=== PATIENT | male | born 1985 | race Caucasian/White ===

== ENCOUNTER 2019-06-11 21:46 | Emergency (ER) | payer BC ==
[~2019-06-11] VITALS: Ht 175.3 cm; Wt 88.2 kg
[~2019-06-11 21:46] MED LIST: BLOOD PRESSURE MED; DOXYCYCLINE 10100 MG PO; LORTAB 5/500 501 TAB PO; MULTI VITAMINS1 TAB PO; NO HOME MEDICATIONS; PROBIOTICA100 MILLIO PO; TRIGLYCERIDE MED; ZYLOPRIM 100MG100 MG PO
[2019-06-11 21:56] VITALS: TEMP 97.1
[2019-06-12 00:36] LABS: ALANINE AMINOTRANSFERASE 12 U/L (21-72); ALKALINE PHOSPHATASE 69 U/L (50-136); ANION GAP 12 mmol/L (7-16); AST,SGOT 24 U/L (15-37); BILIRUBIN,TOTAL 0.6 mg/dL (0.0-1.0); BLOOD UREA NITROGEN 20 mg/dL (9-20); C-REACTIVE PROTEIN < 0.5 mg/dL (0.0-0.9); CALCIUM 10.4 mg/dL (8.4-10.2); CARBON DIOXIDE 26 mmol/L (22-30); CHLORIDE 101 mmol/L (98-107); CREATININE, serum 0.91 (0.66-1.25); GLUCOSE 102 mg/dL (74-106); LIPASE 42 U/L (23-300); POTASSIUM 3.6 mmol/L (3.4-5.0); SODIUM 139 mmol/L (137-145); TOTAL PROTEIN 8.7 gm/dL (6.4-8.2)
[2019-06-12 01:11] LABS: COLLECTION METHOD CLEAN CATCH
[2019-06-12 01:17] LABS: MUCOUS Present /lpf; PH 6 (5-8); SQUAMOUS EPITHELIAL None Seen /hpf; URINE APPEARANCE Clear; URINE BACTERIA None Seen /hpf; URINE BILIRUBIN Negative (NEGATIVE); URINE BLOOD Negative (NEGATIVE); URINE COLOR Yellow; URINE GLUCOSE Negative (NEGATIVE); URINE KETONE Negative (NEGATIVE); URINE LEUKOCYTE ESTERASE Negative (NEGATIVE); URINE NITRATE Negative (NEGATIVE); URINE PROTEIN(semi-quant) Negative (NEGATIVE); URINE RBC 0-2 /hpf; URINE UROBILINOGEN Negative (NEGATIVE)
[2019-06-12 01:34] LABS: BASO % 0.1 % (0.0-2.0); EOS # 0.1 (0.0-0.7); EOS % 0.7 % (0-4.0); GRAN # 6.2 (1.4-6.5); GRAN % 65.8 % (42.2-75.2); HEMATOCRIT 48.2 % (42.0-52.0); HEMOGLOBIN 16.4 g/dl (13.5-18.0); LYMPH # 2.4 (1.2-3.4); LYMPH % 25.8 % (20.0-51.0); MEAN CELL VOLUME 84 fl (80.0-100.0); MEAN CORPUSCULAR HEMOGLOBIN 29 pg (27.0-31.0); MEAN CORPUSCULAR HGB CONC 34 g/dl (33.0-37.0); MEAN PLATELET VOLUME 9.2 fl (7.4-10.4); MONO # 0.7 (0.1-0.6); MONO % 7.5 % (1.7-9.3); PLATELET COUNT 331 K/mm3 (130-400); RED BLOOD COUNT 5.71 M/mm3 (4.20-5.60); REDCELL DISTRIBUTION WIDTH-CV 12.8 % (11.5-14.5)
[2019-06-12 03:40] LABS: LACTATE DEHYDROGENASE 495 U/L (313-618)
[2019-06-12] MEDS ORDERED: NORCO 325 MG-51 TAB PO (03:41)
[2019-06-12 03:57] LABS: HCG,QUANTITATIVE < 2 mIU/mL
[2019-06-12 03:59] VITALS: BP 145/89; PULSE 65
== END 2019-06-12 03:59 | disposition home or self-care (01) ==
LOC: COL.ER 21:46
PROVIDERS: Emergency Medicine
DX: R19.04 Left lower quadrant abdominal swelling, mass and lump (principal); I10 Essential (primary) hypertension; F43.10 Post-traumatic stress disorder, unspecified; K58.9 Irritable bowel syndrome, unspecified; Z90.79 Acquired absence of other genital organ(s)
CPT/HCPCS: J1170; J1885; J7030; Q9967

== ENCOUNTER → 2019-06-17 | Outpatient (CLI) | payer BC ==
[~2019-06-17] VITALS: Ht 175.3 cm; Wt 86.3 kg
[~2019-06-17] MED LIST changes: +HCTZ 25MG TAB25 MG PO; +NORCO 325 MG-51 TAB PO; +ZOLOFT 25MG25 MG PO; +ZOLOFT 50MG50 MG PO
[2019-06-17 13:05] VITALS: BP 144/74; PULSE 84
--- NOTE | 2019-06-17 14:16 | NUR ---
procedure cancelled by dr real
== END ==
LOC: COL.RAD 12:17
DX: Z53.9 Procedure and treatment not carried out, unspecified reason (principal)

== ENCOUNTER 2019-06-25 10:20 | Day surgery (SDC) | payer BC ==
[~2019-06-25] VITALS: Ht 175.3 cm; Wt 90.1 kg
[~2019-06-25 10:20] MED LIST changes: -ZOLOFT 50MG50 MG PO
[2019-06-25 10:38] VITALS: BP 156/88; PULSE 72; TEMP 98
[2019-06-25] MEDS ORDERED: ZOLOFT 50MG50 MG PO (10:43)
[2019-06-25 14:40] VITALS: BP 145/85; PULSE 74; TEMP 97.7
--- NOTE | 2019-06-25 14:40 | NUR ---
The patient arrived back to [facility] from the recovery room at this time. The patient appears alert and oriented and denies any pain or nasuea at this time. The patient's post operative vital signs were started at this time. The patient requests to try some chocolate pudding and ice water at this time. Call light is within reach. Will continue to monitor the patient.
[2019-06-25 14:41] VITALS: TEMP 98.1
[2019-06-25 14:55] VITALS: BP 136/78; PULSE 78
--- NOTE | 2019-06-25 15:00 | NUR ---
The patient appeared to tolerate the pudding well and was given a PRN dose of Percocet 1 tab as ordered for continued pain control. Vital signs appear stable. The patient's father was brought back to be at his bedside.
[2019-06-25 15:10] VITALS: BP 140/82; PULSE 68
--- NOTE | 2019-06-25 15:10 | NUR ---
The patient appears to be resting comfortably on the cart. The nurse got in touch with Dr. Estrada to confirm the patient's activity well and when he can return to work. He stated the patient can return to work on Monday on light duty. The nurse also inquired whether the patient needed to void prior to discharge due to having a matias catheter for the case. Dr. Estrada said the patient was able to be discharged home without voiding.
[2019-06-25] MEDS ORDERED: NORCO 325 MG-51 TAB PO (15:18)
--- NOTE | 2019-06-25 15:25 | NUR ---
Discharge instructions were reviewed with the patient at this time. He verbalized understanding and has no questions for the nurse at this time. The nurse instructed the patient that he can return to work on Monday with light duty and told him to call the office if his employer requires a note from the doctor. The patient was also instructed that if he is unable to void that he needed to return to the ER to have his bladder scanned. The nurse instructed the patient to get dressed and notify the staff when he is ready to be escorted out.
--- NOTE | 2019-06-25 15:35 | NUR ---
The patient was escorted out via wheelchair to a private vehicle by DANETTE Osborn. The patient's belongings and discharge paperwork were sent with him. The patient's father is present to drive him home.
== END 2019-06-25 15:35 | disposition home or self-care (01) ==
LOC: SDCO 10:20
DX: C62.02 Malignant neoplasm of undescended left testis (principal); I10 Essential (primary) hypertension; F43.10 Post-traumatic stress disorder, unspecified; F32.9 Major depressive disorder, single episode, unspecified; F17.210 Nicotine dependence, cigarettes, uncomplicated; Z79.899 Other long term (current) drug therapy
CPT/HCPCS: A4314; J0330; J0690; J1100; J1885; J2250; J2405; J2704; J3010; J7120